=== PATIENT | male | born 1965 | race Caucasian/White ===

== ENCOUNTER 2017-05-23 18:47 | Emergency (ER) | payer MEDICARE, OTHER ==
[~2017-05-23] VITALS: Ht 177.8 cm; Wt 86.4 kg
[~2017-05-23 18:47] MED LIST: CITA20TA9 PO; DIVA500T35 PO; FISH1CAP49 PO; LACO100 PO
[2017-05-23] MEDS ORDERED: ASPIRIN 81 MG CHEWABLE TABLET PO ONE (19:00)
[2017-05-23 20:11] LABS: BASOPHILS % (AUTO) 0.3 % (0.0-2.0); EOSINOPHILS % (AUTO) 2.5 % (1.0-6.0); HEMATOCRIT 26.6 % (41-53); HEMOGLOBIN 8.8 g/dL (13.5-17.5); LYMPHOCYTES # (AUTO) 4.5 K/uL (1.0-4.8); LYMPHOCYTES % (AUTO) 24.3 % (22.0-44.0); MEAN CORPUSCULAR HEMOGLOBIN 29.9 pg (26.0-34.0); MEAN CORPUSCULAR HGB CONC 33.1 G/dL (31.0-37.0); MEAN CORPUSCULAR VOLUME 90 fL (80-100); MONOCYTES # (AUTO) 1.7 K/uL (0.1-1.0); MONOCYTES % (AUTO) 9.3 % (2.0-9.0); NEUTROPHILS # (AUTO) 11.8 K/uL (1.8-7.7); NEUTROPHILS % (AUTO) 63.6 % (40.0-70.0); PLATELET COUNT (AUTO) 537 K/uL (150-450); RED BLOOD CELL COUNT(AUTO) 2.94 MIL/uL (4.50-5.90); RED CELL DISTRIBUTION WIDTH 16.9 % (11.5-14.5); WHITE BLOOD COUNT (AUTO) 18.5 K/uL (4.5-11.0)
[2017-05-23 20:38] LABS: ANION GAP 13 mmol/L (8-16); CALCIUM, TOTAL 9.2 mg/dL (8.8-10.5); CARBON DIOXIDE 21 mmol/L (22-29); CHLORIDE 101 mmol/L (98-107); CREATININE 1.26 mg/dL (0.60-1.30); GLOMERULAR FILTR. RATE CALC 60 mL/min (>60); POTASSIUM 4.3 mmol/L (3.5-5.1); SODIUM SERUM 135 mmol/L (136-145); UREA NITROGEN, BLOOD 19 mg/dL (7-18)
[2017-05-23 20:42] LABS: ALANINE AMINOTRANSFERASE 42 U/L (12-78); ALBUMIN 2.5 g/dL (3.4-5.0); ASPARTATE AMINOTRANSFERASE 17 U/L (15-37); BILIRUBIN,TOTAL 0.3 mg/dL (0.1-1.0); CREATINE KINASE, TOTAL 64 U/L (39-308); TOTAL PROTEIN, SERUM 8.2 g/dL (6.4-8.2); VALPROIC ACID 56 mcg/mL (50-100)
[2017-05-23] MEDS ORDERED: IOVERSOL 350 MG/ML 100 ML VIAL ONE (20:46)
[2017-05-23 20:56] LABS: B-TYPE NATRIURETIC PEPTIDE 51 pg/mL (0-100)
[2017-05-23 22:16] LABS: APPEARANCE,URINE CLOUDY (CLEAR); GLUCOSE, URINE (UA) NEGATIVE (NEGATIVE); KETONES,URINE NEGATIVE (NEGATIVE); LEUKOCYTE ESTERASE ,URINE LARGE (NEGATIVE); OCCULT BLOOD,URINE LARGE (NEGATIVE); PH,URINE 5.5 (5.0-8.0); PROTEIN,URINE POS 1+ (NEGATIVE)
[2017-05-23 22:18] LABS: ADD UA MICROSCOPIC YES; WBC,URINE 51-100 /HPF (0-5)
[2017-05-23] MEDS ORDERED: CefTRIAXone 1 GM/DEXTROSE 50 ML IV ONE (23:15)
[2017-05-23] MEDS ORDERED: SODIUM CHLORIDE 0.9% 500 ML IV ONE (23:15)
[2017-05-23 23:30] VITALS: BP 110/65
== END 2017-05-23 23:58 | disposition home or self-care (01) ==
LOC: EMS 18:49
DX: N39.0 Urinary tract infection, site not specified (principal)
CPT/HCPCS: 36415; 71010; 71275; 80053; 80164; 81001; 82550; 83605; 83880; 84484; 85025; 87040; 87086; 87106; 93005; 96374; 99285; J0696; J7040; Q9967